=== PATIENT | female | born 1940 | race Caucasian/White ===

== ENCOUNTER 2016-11-19 13:14 | Inpatient (IN) | payer MEDICARE, BC, MEDICAID ==
[~2016-11-19] VITALS: Ht 165.1 cm; Wt 42.0 kg
[2016-11-19 04:45] VITALS: BP 80/45; PULSE 61; RESP 16; TEMP 97.4; O2SAT 94
[~2016-11-19 13:14] MED LIST: ALKATAB PO; ATEN25TA PO; CLOP75TA PO; FLUO20CA4 PO; LYRI150C PO; MONT10TA4 PO; OMEP20TA PO; PANT40TA3 PO; PRAM0.12 PO; PRAV20TA2 PO; TRAM50TA PO; TRAZ100T4 PO
[2016-11-19 13:26] VITALS: BP 163/72; PULSE 76; RESP 20; TEMP 99.3; O2SAT 93
[2016-11-19] MEDS ORDERED: ATEN25TA PO (13:38)
[2016-11-19] MEDS ORDERED: PRAM0.12 PO (13:38)
[2016-11-19] MEDS ORDERED: PROT40TA PO (13:38)
[2016-11-19] MEDS ORDERED: CLOP75TA PO (13:38)
[2016-11-19] MEDS ORDERED: NYST15T TOPICAL (13:38)
[2016-11-19] MEDS ORDERED: LYRI150C PO (13:38)
[2016-11-19] MEDS ORDERED: TRAZ50TA12 PO (13:38)
[2016-11-19] MEDS ORDERED: FLUO20CA12 PO (13:38)
[2016-11-19] MEDS ORDERED: TRAM50TA PO (13:38)
[2016-11-19] MEDS ORDERED: OMEP20TA PO (13:38)
[2016-11-19] MEDS ORDERED: SODI325T PO (13:38)
[2016-11-19] MEDS ORDERED: MONT10TA4 PO (13:38)
[2016-11-19] MEDS ORDERED: PRAV20TA2 PO (13:38)
[2016-11-19] MEDS ORDERED: LEVO25TA4 PO (13:38)
[2016-11-19] MEDS ORDERED: SODIUM CHLORID 0.9% 500 ML INJ 500 ML IV ONE (13:45)
[2016-11-19] MEDS ORDERED: HYDROmorphone HCL PF 1 MG/ML VIAL IV PUSH ONE (13:45)
--- NOTE | 2016-11-19 13:55 | PD ---
HPI Chief Complaint: Pain: Acute or Chronic Time Seen by Provider: 13:30 Travel History International Travel<30 days: No Contact w/Intl Traveler<30days: No Traveled to known affect area: No History of Present Illness HPI Is a 76 year-old woman who presents to the emergency room complaining of back pain. She is a history of back pain in the past. States tramadol and alert, regularly. She states over the past 2-3 days progressively worse. Today she is not able to get out of bed and so her son called the ambulance. 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 States the pain is severe, was unable to sleep last night. Has fallen in the remote past, several weeks to months ago, denies any recent falls or injuries. No other complaints. History Past Medical History Narrative Medical History gastric ulcer and GI bleed Hypertension Osteoarthritis history of CVA PNEUMOCCOCAL Vaccine (Year): 2 Menopausal: Yes Social History Alcohol Use: No Tobacco Use: No Allergies-Medications (Allergen,Severity, Reaction): Coded Allergies: Augmentin (Verified Allergy, Severe, HIVES, 05/23/16) Demerol (Verified Allergy, Severe, shortness of breath, 05/23/16) Gabapentin (Verified Allergy, Severe, NAUSEA, 05/23/16) Methadone (Verified Allergy, Severe, HTN, 05/23/16) Morphine (Verified Allergy, Severe, 05/23/16) shortness of breath Plaquenil (Verified Allergy, Severe, Nausea/Vomiting HEADACHE, 05/23/16) Skelaxin (Verified Allergy, Severe, NAUSEA, 05/23/16) Tetracyclines (Verified Allergy, Severe, NAUSEA, 05/23/16) Tigan (Verified Allergy, Severe, NAUSEA, 05/23/16) Codeine (Verified Adverse Reaction, Severe, NAUSEA, 05/23/16) Reported Meds & Prescriptions Reported Meds & Active Scripts Active Reported Protonix (Pantoprazole Sodium) 40 Mg Tab 40 Mg PO DIRECTED ONLY AFTER OMEPRAZOLE IS GONE Fluoxetine (Fluoxetine HCl) 20 Mg Capsule 20 Mg PO DAILY Nystatin Topical (Nystatin) 100,000 unit/gm Cream 1 Applic TOPICAL TID Atenolol 25 Mg Tab 25 Mg PO DAILY Montelukast (Montelukast Sodium) 10 Mg Tab 10 Mg PO HS Pramipexole (Pramipexole Dihydrochloride) 0.125 Mg Tab 0.125 Mg PO HS Trazodone (Trazodone HCl) 50 Mg Tab 100 Mg PO HS Sodium Bicarbonate 325 Mg Tab Unknown Dose PO DAILY Tramadol (Tramadol HCl) 50 Mg Tab 100 Mg PO BID PRN Pravastatin 20 Mg Tab 20 Mg PO DAILY Clopidogrel (Clopidogrel Bisulfate) 75 Mg Tab 75 Mg PO DAILY Omeprazole 20 Mg Tab 20 Mg PO DAILY Lyrica (Pregabalin) 150 Mg Cap 150 Mg PO BID Levothyroxine (Levothyroxine Sodium) 25 Mcg Tab Unknown Dose PO DAILY 1.5 HOURS AFTER DINNER Review of Systems Except as stated in HPI: all other systems reviewed are Neg Physical Exam Narrative GENERAL: Frail 76 year-old woman, appears uncomfortable but nontoxic. SKIN: Focused skin assessment warm/dry. NECK: Trachea midline. No JVD. CARDIOVASCULAR: Regular rate and rhythm. No murmur appreciated. RESPIRATORY: No accessory muscle use. Clear to auscultation. Breath sounds equal bilaterally. GASTROINTESTINAL: Abdomen soft, non-tender, nondistended. Hepatic and splenic margins not palpable. MUSCULOSKELETAL: No obvious deformities. Some scoliosis in the back. Pain with any range of motion of the back. Tenderness in the very low lumbar spine. NEUROLOGICAL: Awake and alert. No obvious cranial nerve deficits. Motor grossly within normal limits. Normal speech. PSYCHIATRIC: Appropriate mood and affect; insight and judgment normal. Data Data Last Documented VS Vital Signs Date Time Temp Pulse Resp B/P Pulse Ox O2 Delivery O2 Flow Rate FiO2 11/19/16 13:26 99.3 76 20 163/72 93 Orders Complete Blood Count With Diff (11/19/16 13:41) Comprehensive Metabolic Panel (11/19/16 13:41) Spine, Lumbar Comp W/Obliq (11/19/16 ) Urinalysis - C+S If Indicated (11/19/16 13:41) Iv Access Insert/Monitor (11/19/16 13:41) Hydromorphone Pf Inj (Dilaudid Pf Inj) (11/19/16 13:45) Sodium Chlorid 0.9% 500 Ml Inj (Ns 500 M (11/19/16 13:45) Vascular Access Team Consult/P PRN (11/19/16 13:49) Vascular Poc Ultrasound (11/19/16 ) Admit Order (Ed Use Only) (11/19/16 ) Labs Laboratory Tests Test 11/19/16 11/19/16 14:10 14:40 White Blood Count 9.3 TH/MM3 Red Blood Count 3.26 MIL/MM3 Hemoglobin 9.2 GM/DL Hematocrit 27.7 % Mean Corpuscular Volume 84.9 FL Mean Corpuscular Hemoglobin 28.1 PG Mean Corpuscular Hemoglobin 33.1 % Concent Red Cell Distribution Width 16.3 % Platelet Count 222 TH/MM3 Mean Platelet Volume 8.3 FL Neutrophils (%) (Auto) 77.9 % Lymphocytes (%) (Auto) 10.9 % Monocytes (%) (Auto) 10.1 % Eosinophils (%) (Auto) 0.7 % Basophils (%) (Auto) 0.4 % Neutrophils # (Auto) 7.2 TH/MM3 Lymphocytes # (Auto) 1.0 TH/MM3 Monocytes # (Auto) 0.9 TH/MM3 Eosinophils # (Auto) 0.1 TH/MM3 Basophils # (Auto) 0.0 TH/MM3 CBC Comment AUTO DIFF Differential Comment AUTO DIFF CONFIRMED Platelet Estimate NORMAL Platelet Morphology Comment NORMAL Red Cell Morphology Comment NORMAL Sodium Level 137 MEQ/L Potassium Level 5.2 MEQ/L Chloride Level 104 MEQ/L Carbon Dioxide Level 27.7 MEQ/L Anion Gap 5 MEQ/L Blood Urea Nitrogen 37 MG/DL Creatinine 1.49 MG/DL Estimat Glomerular Filtration 34 ML/MIN Rate Random Glucose 94 MG/DL Calcium Level 8.9 MG/DL Total Bilirubin 0.3 MG/DL Aspartate Amino Transf 31 U/L (AST/SGOT) Alanine Aminotransferase 18 U/L (ALT/SGPT) Alkaline Phosphatase 99 U/L Total Protein 7.3 GM/DL Albumin 3.2 GM/DL Urine Color YELLOW Urine Turbidity CLEAR Urine pH 6.5 Urine Specific [place] 1.012 Urine Protein NEG mg/dL Urine Glucose (UA) NEG mg/dL Urine Ketones NEG mg/dL Urine Occult Blood NEG Urine Nitrite NEG Urine Bilirubin NEG Urine Urobilinogen LESS THAN 2.0 MG/DL Urine Leukocyte Esterase NEG Urine RBC LESS THAN 1 /hpf Urine Squamous Epithelial 1 /hpf Cells Microscopic Urinalysis Comment CULT NOT INDICATED MDM Medical Decision Making Medical Screen Exam Complete: Yes Emergency Medical Condition: Yes Interpretation(s) LABS: CBC remarkable for mild anemia. CMP unremarkable, mildly elevated BUN/creatinine. UA unremarkable. X-ray lumbar spine: Under mineral ice bones with marginal scoliosis and postsurgical changes extremity from L1 to S1. Degenerative disc disease L2-L3, L5 through S1. Compression fracture involving T11, T12, and L1 of uncertain chronicity. Differential Diagnosis Acute on chronic low back pain, compression fracture, AAA, UTI, other Narrative Course Medical decision making INITIAL: 76-year-old woman who presents with acute on chronic low back pain, unable to walk due to pain, worse with movement. We'll check x-ray to evaluate for possible compression fracture, labs, reassess. FINAL: 76 year-old woman, lives alone, unable to walk due to back pain, x-ray shows compression fractures although higher in the back than expected given her location of her pain. Likely old. We'll plan on admission for pain control, PT eval, reassess. Diagnosis Primary Impression: Intractable low back pain Additional Impression: Gait instability Lavon Alvarado MD November 19, 2016 13:55
[2016-11-19 14:26] LABS: AUTOMATED NEUTROPHIL # 7.2 TH/MM3 (1.8-7.7); BASOPHIL % 0.4 % (0.0-2.0); EOSINOPHIL # 0.1 TH/MM3 (0-0.4); EOSINOPHIL % 0.7 % (0.0-4.0); HEMATOCRIT 27.7 % (35.0-46.0); LYMPH % 10.9 % (9.0-44.0); MEAN CELL VOLUME 84.9 FL (80.0-100.0); MEAN CORPUSCULAR HEMOGLOBIN 28.1 PG (27.0-34.0); MEAN CORPUSCULAR HGB CONC 33.1 % (32.0-36.0); MONO % 10.1 % (0.0-8.0); NEUT % 77.9 % (16.0-70.0); PLATELET COUNT 222 TH/MM3 (150-450); RED BLOOD COUNT 3.26 MIL/MM3 (4.00-5.30); RED CELL DISTRIBUTION WIDTH 16.3 % (11.6-17.2); WHITE BLOOD COUNT 9.3 TH/MM3 (4.0-11.0)
[2016-11-19 14:27] LABS: HEMO FLAGS AUTO DIFF
[2016-11-19 14:43] LABS: ALKALINE PHOSPHATASE 99 U/L (45-117); TOTAL BILIRUBIN ADULT 0.3 MG/DL (0.2-1.0)
--- NOTE | 2016-11-19 14:49 | RADRPT ---
EXAM DATE/TIME: 11/19/2016 14:19 [facility] COMPARISON: CT ABDOMEN & PELVIS W CONTRAST, October 13, 2015, 16:01. INDICATIONS : Lumbar spine pain. No recent falls or injuries. MEDICAL HISTORY : None. SURGICAL HISTORY : Lumbar spine fusion. ENCOUNTER: Initial ACUITY: 4 - 6 days PAIN SCORE: 8/10 LOCATION: Lumbar spine. FINDINGS: 5 views of the lumbar spine demonstrate 5 [id number] lumbar vertebral bodies with marked leftwar d convex curvature. There are bilateral posterior pedicular screws extending from L1-S1. Stabilizatio n hardware is present. There are no features to indicate hardware failure or loosening. There is decr eased vertebral body height at T11, T12, and L1. Bones are undermineralized. There may be some degree of osseous fusion between L3 and L4. There is decreased disc height at all lumbar levels. Hypertroph ic bone around the posterior elements is likely related to prior bone graft. There also has been prio r laminectomy. Pelvic bones demonstrate no acute finding. There is moderate atherosclerotic disease of the aorta. CONCLUSION: 1. Undermineralized bones with marked levoscoliosis and postsurgical changes extending from L1-S1, as above. 2. There is degenerative disc disease at L2-L3 through L5-S1. 3. Compression fractures involving T11, T12, and L1 of uncertain chronicity. Jason Hernandez MD on November 19, 2016 at 14:45 Board Certified Radiologist. This report was verified electronically.
[2016-11-19 14:50] LABS: ALT (GPT) 18 U/L (10-53); ANION GAP 5 MEQ/L (5-15); AST (GOT) 31 U/L (15-37); BICARBONATE 27.7 MEQ/L (21.0-32.0); BLOOD UREA NITROGEN 37 MG/DL (7-18); CHLORIDE 104 MEQ/L (98-107); GLOMERULAR FILTRATION RATE 34 ML/MIN (>89); SODIUM (NA) 137 MEQ/L (136-145)
[2016-11-19 14:51] LABS: POTASSIUM 5.2 MEQ/L (3.5-5.1)
[2016-11-19 14:53] LABS: BLOOD, URINE NEG (NEG); GLUCOSE,URINE NEG (NEG); KETONE, URINE NEG (NEG); NITRITE,URINE NEG (NEG); PH, URINE 6.5 (5.0-8.5); SQUAMOUS EPITHELIAL CELL URINE 1 /hpf (0-5); URINE COLOR YELLOW (YELLW/STRAW)
[2016-11-19 15:00] LABS: COMMENT (UR) CULT NOT INDICATED; CULTURE IF INDICATED CULT NOT INDICATED
[2016-11-19 15:02] LABS: PLATELET ESTIMATE SMEAR NORMAL (NORMAL); PLATELET MORPHOLOGY NORMAL (NORMAL)
[2016-11-19 15:03] LABS: SCAN/DIFF AUTO DIFF CONFIRMED
[2016-11-19] MEDS ORDERED: MAGNESIUM HYDROXIDE SUSP 30 ML CUP PO PRN (15:45)
[2016-11-19] MEDS ORDERED: SENNOSIDES 8.6 MG TAB PO PRN (15:45)
[2016-11-19] MEDS ORDERED: LACTULOSE SYRUP 20 GM/30 ML CUP PO PRN (15:45)
[2016-11-19] MEDS ORDERED: SODIUM CHLORIDE 0.9% FLUSH 10 ML FLUSH IV FLUSH PRN (15:45)
[2016-11-19] MEDS ORDERED: NALOXONE HCL 0.4 MG/ML AMP IV PRN (15:45)
[2016-11-19] MEDS ORDERED: ACETAMINOPHEN 325 MG TAB PO PRN (15:45)
[2016-11-19] MEDS ORDERED: HYDROmorphone HCL PF 1 MG/ML VIAL IV PUSH PRN (15:45)
[2016-11-19] MEDS ORDERED: BISACODYL 10 MG SUPP RECTAL PRN (15:45)
[2016-11-19] MEDS ORDERED: ONDANSETRON HCL 4 MG/2 ML VIAL IVP PRN (15:45)
[2016-11-19] MEDS ORDERED: PILL SPLITTER OTHER PRN (16:15)
--- NOTE | 2016-11-19 16:29 | HHI.HP ---
HPI Service [facility]ician Billie Sierra MD Admission Diagnosis intractable back pain, compression fractures Diagnoses: Chief Complaint: Back pain Travel History International Travel<30 Days: No Contact w/Intl Traveler <30 Da: No Traveled to Known Affected Are: No History of Present Illness Written by Hong Gardner, acting as scribe for Dr. Ceballos on 11/19/16 at 16:10. 76-year-old female with a past medical history of PUD, HTN, CVA, HLD, depression , Parkinson's, hypothyroidism, lupus, CKD, and chronic back pain who presents with acute worsening of her back pain. The patient is seen with family at bedside who reports that she does have dementia and short-term memory problems. Therefore, history is obtained from the patient, family at bedside, and the medical record. The patient states that she always has pain in her back. However for the past day the pain has become severe. The patient is unable to walk or really move her back secondary to the pain. States that this is the "worst ever" the pain has ever been. She locates the pain in her lower back. She denies any recent falls or injuries. She denies any weakness or numbness. The patient's family states that she was able to walk whenever they saw her one week ago. The patient does reside at home with a caregiver. The patient has an extensive history of back pain and has followed with pain management and has had neurostimulator placed and removed, and has had cervical spine surgery with Dr. Bennett in the past. Review of Systems Except as stated in HPI: all other systems reviewed are Neg Past Family Social History Past Medical History PUD/history of GI bleed Hypertension History of CVA Hyperlipidemia Chronic kidney disease stage III Depression Parkinson's Hypothyroidism Lupus Dementia Past Surgical History Bilateral shoulder replacement Back and neck surgery Nerve stimulator placement and removal Reported Medications Protonix (Pantoprazole Sodium) 40 Mg Tab 40 Mg PO DIRECTED ONLY AFTER OMEPRAZOLE IS GONE Fluoxetine (Fluoxetine HCl) 20 Mg Capsule 20 Mg PO DAILY Nystatin Topical (Nystatin) 100,000 unit/gm Cream 1 Applic TOPICAL TID Atenolol 25 Mg Tab 25 Mg PO DAILY Montelukast (Montelukast Sodium) 10 Mg Tab 10 Mg PO HS Pramipexole (Pramipexole Dihydrochloride) 0.125 Mg Tab 0.125 Mg PO HS Trazodone (Trazodone HCl) 50 Mg Tab 100 Mg PO HS Sodium Bicarbonate 325 Mg Tab Unknown Dose PO DAILY Tramadol (Tramadol HCl) 50 Mg Tab 100 Mg PO BID PRN Pravastatin 20 Mg Tab 20 Mg PO DAILY Clopidogrel (Clopidogrel Bisulfate) 75 Mg Tab 75 Mg PO DAILY Omeprazole 20 Mg Tab 20 Mg PO DAILY Lyrica (Pregabalin) 150 Mg Cap 150 Mg PO BID Levothyroxine (Levothyroxine Sodium) 25 Mcg Tab Unknown Dose PO DAILY 1.5 HOURS AFTER DINNER Allergies: Coded Allergies: Augmentin (Verified Allergy, Severe, HIVES, 05/23/16) Demerol (Verified Allergy, Severe, shortness of breath, 05/23/16) Gabapentin (Verified Allergy, Severe, NAUSEA, 05/23/16) Methadone (Verified Allergy, Severe, HTN, 05/23/16) Morphine (Verified Allergy, Severe, 05/23/16) shortness of breath Plaquenil (Verified Allergy, Severe, Nausea/Vomiting HEADACHE, 05/23/16) Skelaxin (Verified Allergy, Severe, NAUSEA, 05/23/16) Tetracyclines (Verified Allergy, Severe, NAUSEA, 05/23/16) Tigan (Verified Allergy, Severe, NAUSEA, 05/23/16) Codeine (Verified Adverse Reaction, Severe, NAUSEA, 05/23/16) Active Ordered Medications Current Medications Medications (Trade) Dose Ordered Sig/Ngoc Route Start Time Stop Time Status Last Admin (Tenormin) 25 mg DAILY PO 11/20/16 09:00 (PROzac) 20 mg DAILY PO 11/20/16 09:00 (Singulair) 10 mg HS PO 11/19/16 21:00 (Protonix) 40 mg DAILY PO 11/20/16 09:00 (Pravachol) 20 mg DAILY PO 11/20/16 09:00 (Lyrica) 150 mg BID PO 11/19/16 21:00 (Mirapex) 0.125 mg HS PO 11/19/16 21:00 (NS Flush) 2 ml UNSCH PRN IV FLUSH 5/29/17 15:45 (NS Flush) 2 ml BID IV FLUSH 11/19/16 21:00 (Tylenol) 650 mg Q4H PRN PO 11/19/16 15:45 (Zofran Inj) 4 mg Q6H PRN IVP 11/19/16 15:45 (Heparin Inj) 5,000 units Q12H SQ 11/19/16 17:00 (Narcan Inj) 0.4 mg UNSCH PRN IV 11/19/16 15:45 (Susana-Colace) 1 tab BID PO 11/19/16 21:00 (Milk Of Magnesia Liq) 30 ml Q12H PRN PO 11/19/16 15:45 (Senokot) 17.2 mg Q12H PRN PO 11/19/16 15:45 (Dulcolax Supp) 10 mg DAILY PRN RECTAL 11/19/16 15:45 (Lactulose Liq) 30 ml DAILY PRN PO 11/19/16 15:45 (Percocet 5-325 Mg) 1 tab Q4H PRN PO 11/19/16 15:45 (Dilaudid Pf Inj) 0.5 mg Q4H PRN IV PUSH 11/19/16 15:45 (Pill Splitter) 1 ea UNSCH PRN OTHER 11/19/16 16:15 Family History Family history of arthritis and osteoporosis Social History Former tobacco use, the patient reports a [id number] smoking history Denies any alcohol use Lives at home with a caregiver Physical Exam Vital Signs Vital Signs Date Time Temp Pulse Resp B/P Pulse Ox O2 Delivery O2 Flow Rate FiO2 11/19/16 13:26 99.3 76 20 163/72 93 Physical Exam GENERAL: Well-developed fair-nourished. Frail-appearing elderly female. In no acute distress. SKIN: Warm and dry. No lesions noted. HEENT: Normocephalic. Pupils equal and round. Mucous membranes pink and moist. CARDIOVASCULAR: Regular rate and rhythm. No murmur appreciated. RESPIRATORY: No accessory muscle use. Clear to auscultation. Breath sounds equal bilaterally. GASTROINTESTINAL: Abdomen soft, non-tender, nondistended. Bowel sounds x4. MUSCULOSKELETAL: No obvious deformities. No clubbing or cyanosis. No edema. Unable to roll over or move the spine secondary to pain. NEUROLOGICAL: Awake and alert. Moves upper and lower extremities spontaneously. Normal speech. Strength 5/5 in the lower extremities. PSYCHIATRIC: Appropriate mood and affect; insight and judgment fair. Laboratory Laboratory Tests Test 11/19/16 11/19/16 14:10 14:40 White Blood Count 9.3 Red Blood Count 3.26 Hemoglobin 9.2 Hematocrit 27.7 Mean Corpuscular Volume 84.9 Mean Corpuscular Hemoglobin 28.1 Mean Corpuscular Hemoglobin 33.1 Concent Red Cell Distribution Width 16.3 Platelet Count 222 Mean Platelet Volume 8.3 Neutrophils (%) (Auto) 77.9 Lymphocytes (%) (Auto) 10.9 Monocytes (%) (Auto) 10.1 Eosinophils (%) (Auto) 0.7 Basophils (%) (Auto) 0.4 Neutrophils # (Auto) 7.2 Lymphocytes # (Auto) 1.0 Monocytes # (Auto) 0.9 Eosinophils # (Auto) 0.1 Basophils # (Auto) 0.0 CBC Comment AUTO DIFF Differential Comment AUTO DIFF CONFIRMED Platelet Estimate NORMAL Platelet Morphology Comment NORMAL Red Cell Morphology Comment NORMAL Sodium Level 137 Potassium Level 5.2 Chloride Level 104 Carbon Dioxide Level 27.7 Anion Gap 5 Blood Urea Nitrogen 37 Creatinine 1.49 Estimat Glomerular Filtration 34 Rate Random Glucose 94 Calcium Level 8.9 Total Bilirubin 0.3 Aspartate Amino Transf 31 (AST/SGOT) Alanine Aminotransferase 18 (ALT/SGPT) Alkaline Phosphatase 99 Total Protein 7.3 Albumin 3.2 Urine Color YELLOW Urine Turbidity CLEAR Urine pH 6.5 Urine Specific [place] 1.012 Urine Protein NEG Urine Glucose (UA) NEG Urine Ketones NEG Urine Occult Blood NEG Urine Nitrite NEG Urine Bilirubin NEG Urine Urobilinogen LESS THAN 2.0 Urine Leukocyte Esterase NEG Urine RBC LESS THAN 1 Urine Squamous Epithelial 1 Cells Microscopic Urinalysis Comment CULT NOT INDICATED Result Diagram: 11/19/16 1410 11/19/16 1410 Imaging Last Impressions Lumbar Spine X-Ray 11/19/16 0000 Signed Impressions: Service Date/Time: Saturday, November 19, 2016 14:19 - CONCLUSION: 1. Undermineralized bones with marked levoscoliosis and postsurgical changes extending from L1-S1, as above. 2. There is degenerative disc disease at L2-L3 through L5-S1. 3. Compression fractures involving T11, T12, and L1 of uncertain chronicity. Jason Hernandez MD Assessment and Plan Assessment and Plan 76-year-old female with a past medical history of PUD, HTN, CVA, HLD, depression , Parkinson's, hypothyroidism, lupus, CKD, and chronic back pain who presents with acute worsening of her back pain Acute on chronic back pain: Reviewed: Lumbar x-ray with under mineralized bones with marked levoscoliosis and postsurgical changes from L1-S1; compression fractures involving T11 through L1 of uncertain chronicity; DDD L2-S1. -Pain control with oral and intravenous narcotics -Consult neurosurgery -PT eval -Continue home Lyrica History of CVA: Hold Plavix for now pending neurosurgery evaluation, and will plan to resume if no intervention planned. Normocytic anemia: Chronic, stable. Hemoglobin 9.2, previously 8.4 on 10/15/15. Monitor CBC. CKD stage III: Chronic, stable. Creatinine 1.49, previously 1.51 on 10/14/15. Follow-up BMP. Other chronic medical conditions include GERD, HLD, Parkinson's disease, HTN, anxiety/depression: Stable at this time and will continue home medications as indicated. DVT prophylaxis: Heparin This note was transcribed by scribbryant [Jj Pitts]. I, Dr. Norberto Ceballos personally performed the history, physical exam, and medical decision making; and confirmed the accuracy of the information in the transcribed note. Authenticated by Dr. Norberto Ceballos on 11/19/16 at 16:15. Discussed Condition With Patient with family at bedside, ED staff Hong Gardner November 19, 2016 16:29 Norberto Ceballos MD November 19, 2016 16:43
[2016-11-19 16:45] VITALS: BP 159/80; PULSE 75; RESP 18; TEMP 98.5; O2SAT 94
[2016-11-19] MEDS: HEPARIN SODIUM - SQ 10,000 UNITS/ML VIAL SQ SCH (18:28)
[2016-11-19 20:00] VITALS: BP 133/50; PULSE 83; RESP 16; TEMP 98; O2SAT 95
[2016-11-19] MEDS: oxyCODONE/ACETAMINOPHEN 5 MG/325 MG TAB PO PRN (21:00)
[2016-11-19] MEDS: DOCUSATE SODIUM 50 MG/SENNA 8.6 MG TAB PO SCH (21:08)
[2016-11-19] MEDS: MONTELUKAST SODIUM 10 MG TAB PO SCH (21:08)
[2016-11-19] MEDS: PRAMIPEXOLE DIHYDROCHLORIDE 0.25 MG TAB PO SCH (21:08)
[2016-11-19] MEDS: PREGABALIN 75 MG CAP PO SCH (21:08)
[2016-11-19] MEDS: SODIUM CHLORIDE 0.9% FLUSH 10 ML FLUSH IV FLUSH SCH (21:14)
[2016-11-20] VITALS: BP 90/54; PULSE 65; RESP 16; TEMP 98.2; O2SAT 94
[2016-11-20] MEDS: oxyCODONE/ACETAMINOPHEN 5 MG/325 MG TAB PO PRN ×3 (02:21→18:37)
[2016-11-20] MEDS ORDERED: DEXT 5%-NACL 0.45% 500 ML INJ 500 ML IV ONE (04:45)
[2016-11-20] MEDS: HEPARIN SODIUM - SQ 10,000 UNITS/ML VIAL SQ SCH (05:01)
[2016-11-20 06:14] VITALS: BP 90/46; PULSE 64; RESP 16; O2SAT 95
[2016-11-20 06:16] LABS: AUTOMATED NEUTROPHIL # 2.5 TH/MM3 (1.8-7.7); BASOPHIL % 0.4 % (0.0-2.0); EOSINOPHIL # 0.1 TH/MM3 (0-0.4); EOSINOPHIL % 3.6 % (0.0-4.0); HEMATOCRIT 24.5 % (35.0-46.0); HEMO FLAGS DIFF FINAL; LYMPH % 22.3 % (9.0-44.0); LYMPHOCYTE # 0.9 TH/MM3 (1.0-4.8); MEAN CELL VOLUME 87.2 FL (80.0-100.0); MEAN CORPUSCULAR HEMOGLOBIN 27.7 PG (27.0-34.0); MEAN CORPUSCULAR HGB CONC 31.7 % (32.0-36.0); MONO % 11.6 % (0.0-8.0); NEUT % 62.1 % (16.0-70.0); PLATELET COUNT 157 TH/MM3 (150-450); RED BLOOD COUNT 2.81 MIL/MM3 (4.00-5.30); RED CELL DISTRIBUTION WIDTH 15.9 % (11.6-17.2); WHITE BLOOD COUNT 4.1 TH/MM3 (4.0-11.0)
[2016-11-20 07:29] VITALS: BP 113/47; PULSE 63; RESP 16; TEMP 97.4; O2SAT 94
[2016-11-20] MEDS ORDERED: ATENOLOL 25 MG TAB PO SCH (09:00)
[2016-11-20] MEDS ORDERED: NON-FORMULARY DRUG (Omeprazole 20 MG) PO SCH (09:00)
[2016-11-20] MEDS: DOCUSATE SODIUM 50 MG/SENNA 8.6 MG TAB PO SCH ×2 (10:05→20:46)
[2016-11-20] MEDS: SODIUM CHLORIDE 0.9% FLUSH 10 ML FLUSH IV FLUSH SCH ×2 (10:05→20:47)
[2016-11-20] MEDS: PREGABALIN 75 MG CAP PO SCH ×2 (10:06→20:47)
[2016-11-20] MEDS: PRAVASTATIN SOD 20 MG TAB PO SCH (10:06)
[2016-11-20] MEDS: PANTOPRAZOLE SOD 40 MG DELAYED RELEASE TAB PO SCH (10:07)
[2016-11-20] MEDS: FLUoxetine HCL 20 MG CAP PO SCH (10:07)
--- NOTE | 2016-11-20 10:07 | HHI.PR ---
Subjective Remarks Patient reports she is feeling better today. Her back pain is better controlled at rest. She has not been out of bed yet. She denies shortness of breath or chest pain. Objective Vitals Vital Signs Date Time Temp Pulse Resp B/P Pulse Ox O2 Delivery O2 Flow Rate FiO2 11/20/16 07:29 97.4 63 16 113/47 94 11/20/16 06:14 64 16 90/46 95 11/20/16 00:00 98.2 65 16 90/54 94 11/19/16 20:00 98.0 83 16 133/50 95 11/19/16 16:45 98.5 75 18 159/80 94 11/19/16 13:26 99.3 76 20 163/72 93 I/O 11/19/16 11/19/16 11/19/16 11/20/16 11/20/16 11/20/16 07:00 15:00 23:00 07:00 15:00 23:00 Intake Total 240 ml 120 ml Balance 240 ml 120 ml Intake Oral 240 ml 120 ml # Voids 1 2 # Bowel Movements 0 0 Result Diagram: 11/20/16 0606 11/20/16 0606 Imaging Last Impressions Lumbar Spine X-Ray 11/19/16 0000 Signed Impressions: Service Date/Time: Saturday, November 19, 2016 14:19 - CONCLUSION: 1. Undermineralized bones with marked levoscoliosis and postsurgical changes extending from L1-S1, as above. 2. There is degenerative disc disease at L2-L3 through L5-S1. 3. Compression fractures involving T11, T12, and L1 of uncertain chronicity. Jason Hernandez MD Objective Remarks GENERAL: Frail and elderly female in no apparent distress. CARDIOVASCULAR: Normal rate and regular rhythm without murmurs, gallops, or rubs. RESPIRATORY: Good respiratory efforts. Breath sounds equal and clear to auscultation bilaterally. GASTROINTESTINAL: Abdomen soft, non-tender, non-distended. Normal active bowel sounds MUSCULOSKELETAL: Patient complains of tenderness to palpation over the lower back. NEURO: Alert & Oriented to self and place. Pleasantly demented. PSYCH: Appropriate mood and affect. A/P Assessment and Plan 76-year-old female with a past medical history of PUD, HTN, CVA, HLD, depression , Parkinson's, hypothyroidism, lupus, CKD, and chronic back pain who presents with acute worsening of her back pain Acute on chronic back pain: Reviewed: Lumbar x-ray with under mineralized bones with marked levoscoliosis and postsurgical changes from L1-S1; compression fractures involving T11 through L1 of uncertain chronicity; DDD L2-S1. - Patient seen by neurosurgery who advised pain control. No neurosurgical interventions indicated at this point. -PT eval. Continue Percocet and Lyrica History of CVA: Resume Plavix. Normocytic anemia: Chronic, hemoglobin trended down today to 7.8. No signs of active bleeding. Monitor CBC. CKD stage III: Chronic, stable. Creatinine 1.49, previously 1.51 on 10/14/15. Follow-up BMP. Other chronic medical conditions include GERD, HLD, Parkinson's disease, HTN, anxiety/depression: Stable at this time and will continue home medications as indicated. DVT prophylaxis: Heparin Discharge Planning I'm not sure the patient will be able to return home. She will probably need [facility] facility placement. Norberto Ceballos MD November 20, 2016 10:07
[2016-11-20 11:35] VITALS: BP 117/55; PULSE 66; RESP 16; TEMP 98.7; O2SAT 94
--- NOTE | 2016-11-20 13:56 | MB ---
cc: ANAHY FRANK M.D., ROHIT K. M.D. DATE OF CONSULTATION: 11/20/2016 REASON FOR CONSULTATION: Low back pain. HISTORY OF PRESENT ILLNESS The patient is a 76-year-old female who resides at home with a ceramic coater and gets around using a walker. Has chronic history of low back pain although states it has gotten worse over the last several weeks, in particularly the last few days she has had difficulty walking because of the pain. Denies any numbness or paresthesias in the upper or lower extremities or any incontinence. She had a history of anterior cervical fusion by Dr. Bennett several years ago, as well as prior to that history of the L1-S1 fusion with pedicle screw fixation. 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 Lumbar spine x-rays also reveal T11-T12 and L1 with compression fractures which appear to be chronic. Her complaint is mostly in the lower lumbar aspect rather then the thoracic spine. She does not remember significant portion of her medical history, within her surgeries in particular, although also had one point had a spinal stimulator in place which was removed. She does suffer from dementia. PAST MEDICAL HISTORY Dementia Parkinson's disease Chronic low back pain Chronic kidney disease History of stroke. Hypertension. Gastrointestinal bleed. Peptic ulcer disease. Depression Hypothyroidism Lupus. PAST SURGICAL HISTORY: 1. Past surgical history also includes bilateral shoulder replacement with limited to the proximal shoulder movement. 2. Cervical spine surgery. 3. Multilevel lumbar fusion from L1-S1. 4. A spinal stimulator placement and subsequent removal. MEDICATIONS PRIOR TO ADMISSION 1. Atenolol. 2. Plavix. 3. Fluoxetine. 4. Synthroid, 5. Montelukast 6. Nystatin. 7. Omeprazole. 8. Protonix. 9. Thiamine. 10. Taxol. 11. Pravastatin. 12. Lyrica. 13. Sodium bicarbonate. 14. Tramadol. 15. Trazodone. ALLERGIES 1. CODEINE 2. DEMEROL 3. GABAPENTIN 4. METHADONE 5. MORPHINE 6. PLAQUENIL 7. SKELAXIN 8. TETRACYCLINE 9. TIGAN 10. AUGMENTIN SOCIAL HISTORY She is a . She resides at home with a ceramic coater although has limited her activities a walker. Denies alcohol or tobacco use. LABORATORY FINDINGS White blood cell count 4.1, hemoglobin 7.8, platelet count of 157, sodium 136, potassium 4.0, BUN 34, creatinine 1.36, glucose 208. Urinalysis is negative. PHYSICAL EXAMINATION VITAL SIGNS: Temperature 97.4, pulse is 63, respiratory rate 16, blood pressure 113/47, oxygen saturation 94% room air. HEAD, EYES, EARS, NOSE, AND THROAT: Normocephalic, atraumatic. NECK: Neck is supple. CHEST: Clear bilaterally HEART: Regular rate rhythm with normal S1, S2. ABDOMEN: The abdomen is soft, nontender. Positive bowel sounds. EXTREMITIES: No cyanosis or edema. NEUROLOGIC: She is awake, alert. Cranial nerves II through XII grossly intact. Motor strength very limited proximally upper extremity shoulder movement because of her previous surgeries and further shoulders, initially she has good strength in the upper and lower extremities. Negative Babinski. Appreciate light touch sensation. Speech is fluent. She has some tenderness in the back with the lower lumbosacral aspect but not in the thoracic or upper lumbar spine. IMPRESSION 1. Chronic low back pain with a history of extensive multilevel fusion extending from L1-S1. She also has some tract T11-T12 and L1 mild to moderate compression fractures which appear to be chronic although her pain is not localized at these levels. 2. Extensive medical comorbidities as listed above. PLAN The patient does not require any neurosurgical intervention nor a she interested any further back surgery. I recommend pain control along with the physical therapy and rehabilitation. If her pain is not adequately controlled with medications and can had can have the special procedures or interventional pain specialist performed by lumbar epidural steroid injections. MD HERI East/kevin /11:22 AM /1:42 PM [facility]
[2016-11-20 15:13] VITALS: BP 115/57; PULSE 63; RESP 16; TEMP 96.3; O2SAT 96
[2016-11-20 20:40] VITALS: BP 101/58; PULSE 72; RESP 17; TEMP 99; O2SAT 93
[2016-11-20] MEDS: PRAMIPEXOLE DIHYDROCHLORIDE 0.25 MG TAB PO SCH (20:46)
[2016-11-20] MEDS: MONTELUKAST SODIUM 10 MG TAB PO SCH (20:46)
[2016-11-21 00:45] VITALS: BP 103/66; PULSE 80; RESP 18; TEMP 99; O2SAT 92
[2016-11-21 04:35] VITALS: BP 119/63; PULSE 70; RESP 17; TEMP 98.4; O2SAT 92
[2016-11-21] MEDS: oxyCODONE/ACETAMINOPHEN 5 MG/325 MG TAB PO PRN ×4 (05:54→23:56)
[2016-11-21 07:11] LABS: HEMATOCRIT 27.7 % (35.0-46.0); MEAN CELL VOLUME 86.6 FL (80.0-100.0); MEAN CORPUSCULAR HEMOGLOBIN 27.4 PG (27.0-34.0); MEAN CORPUSCULAR HGB CONC 31.6 % (32.0-36.0); PLATELET COUNT 196 TH/MM3 (150-450); RED CELL DISTRIBUTION WIDTH 15.8 % (11.6-17.2); REVIEW FLAG FINAL; WHITE BLOOD COUNT 4.6 TH/MM3 (4.0-11.0)
[2016-11-21 07:28] LABS: BICARBONATE 24.3 MEQ/L (21.0-32.0); POTASSIUM 4.2 MEQ/L (3.5-5.1)
[2016-11-21 07:49] VITALS: BP 106/57; PULSE 73; RESP 16; TEMP 95.9; O2SAT 92
[2016-11-21] MEDS: DOCUSATE SODIUM 50 MG/SENNA 8.6 MG TAB PO SCH ×2 (08:46→22:25)
[2016-11-21] MEDS: PRAVASTATIN SOD 20 MG TAB PO SCH (08:46)
[2016-11-21] MEDS: FLUoxetine HCL 20 MG CAP PO SCH (08:46)
[2016-11-21] MEDS: SODIUM CHLORIDE 0.9% FLUSH 10 ML FLUSH IV FLUSH SCH ×2 (08:47→21:00)
[2016-11-21] MEDS: PANTOPRAZOLE SOD 40 MG DELAYED RELEASE TAB PO SCH (08:47)
[2016-11-21] MEDS: PREGABALIN 75 MG CAP PO SCH ×2 (08:47→22:26)
[2016-11-21] MEDS ORDERED: SENN1TAB PO (10:19)
[2016-11-21] MEDS ORDERED: OXYC1TAB63 PO (10:19)
--- NOTE | 2016-11-21 10:23 | HHI.PR ---
Subjective Remarks Patient reports she is feeling better. Her pain is much better controlled. She is able to move better in the bed. Eating well. She is agreeable to go to a care home facility for rehabilitation. Reports that it helped her a lot the last time. Objective Vitals Vital Signs Date Time Temp Pulse Resp B/P Pulse Ox O2 Delivery O2 Flow Rate FiO2 11/21/16 07:49 95.9 73 16 106/57 92 11/21/16 04:35 98.4 70 17 119/63 92 11/21/16 00:45 99.0 80 18 103/66 92 11/20/16 20:40 99.0 72 17 101/58 93 11/20/16 19:35 16 11/20/16 15:13 96.3 63 16 115/57 96 11/20/16 11:35 98.7 66 16 117/55 94 I/O 11/20/16 11/20/16 11/20/16 11/21/16 11/21/16 11/21/16 07:00 15:00 23:00 07:00 15:00 23:00 Intake Total 120 ml 780 ml 240 ml 120 ml Balance 120 ml 780 ml 240 ml 120 ml Intake Oral 120 ml 780 ml 240 ml 120 ml # Voids 2 3 1 2 # Bowel Movements 0 2 1 2 Result Diagram: 11/21/16 0621 11/21/16 0621 Imaging Last Impressions Lumbar Spine X-Ray 11/19/16 0000 Signed Impressions: Service Date/Time: Saturday, November 19, 2016 14:19 - CONCLUSION: 1. Undermineralized bones with marked levoscoliosis and postsurgical changes extending from L1-S1, as above. 2. There is degenerative disc disease at L2-L3 through L5-S1. 3. Compression fractures involving T11, T12, and L1 of uncertain chronicity. Jason Hernandez MD Objective Remarks GENERAL: Frail and elderly female in no apparent distress. CARDIOVASCULAR: Normal rate and regular rhythm without murmurs, gallops, or rubs. RESPIRATORY: Good respiratory efforts. Breath sounds equal and clear to auscultation bilaterally. GASTROINTESTINAL: Abdomen soft, non-tender, non-distended. Normal active bowel sounds MUSCULOSKELETAL: Patient complains of tenderness to palpation over the lower back. NEURO: Alert & Oriented to self and place. Pleasantly demented. PSYCH: Appropriate mood and affect. A/P Assessment and Plan 76-year-old female with a past medical history of PUD, HTN, CVA, HLD, depression , Parkinson's, hypothyroidism, lupus, CKD, and chronic back pain who presents with acute worsening of her back pain Acute on chronic back pain: Reviewed: Lumbar x-ray with under mineralized bones with marked levoscoliosis and postsurgical changes from L1-S1; compression fractures involving T11 through L1 of uncertain chronicity; DDD L2-S1. - Patient seen by neurosurgery who advised pain control. No neurosurgical interventions indicated at this point. Patient cleared for discharge. -PT eval. Continue Percocet and Lyrica - Can discharge to care home facility for continued rehabilitation after 3 midnight stay per Medicare rules. History of CVA: Resume Plavix. Normocytic anemia: Chronic, hemoglobin stabilized. No signs of active bleeding. CKD stage III: Chronic, stable. Other chronic medical conditions include GERD, HLD, Parkinson's disease, HTN, anxiety/depression: Stable at this time and will continue home medications as indicated. DVT prophylaxis: Heparin Discharge Planning DC to care home facility tomorrow once 3 midnight stay requirement is fulfilled. Discussed with case management. [id number] in chart Norberto Ceballos MD November 21, 2016 10:23
[2016-11-21 16:00] VITALS: BP 142/65; PULSE 61; RESP 16; TEMP 97; O2SAT 92
[2016-11-21 20:50] VITALS: BP 130/73; PULSE 62; RESP 18; TEMP 97.6; O2SAT 96
[2016-11-21] MEDS: PRAMIPEXOLE DIHYDROCHLORIDE 0.25 MG TAB PO SCH (22:25)
[2016-11-21] MEDS: MONTELUKAST SODIUM 10 MG TAB PO SCH (22:25)
[2016-11-22 00:20] VITALS: BP 182/84; PULSE 66; RESP 19; TEMP 98.4; O2SAT 95
[2016-11-22] MEDS: oxyCODONE/ACETAMINOPHEN 5 MG/325 MG TAB PO PRN ×3 (04:24→12:48)
[2016-11-22 04:55] VITALS: BP 136/66; PULSE 70
[2016-11-22 07:14] VITALS: BP 122/66; PULSE 69; RESP 19; TEMP 96.5; O2SAT 93
[2016-11-22] MEDS: PANTOPRAZOLE SOD 40 MG DELAYED RELEASE TAB PO SCH (08:40)
[2016-11-22] MEDS: PREGABALIN 75 MG CAP PO SCH (08:40)
[2016-11-22] MEDS: PRAVASTATIN SOD 20 MG TAB PO SCH (08:40)
[2016-11-22] MEDS: FLUoxetine HCL 20 MG CAP PO SCH (08:40)
[2016-11-22] MEDS: SODIUM CHLORIDE 0.9% FLUSH 10 ML FLUSH IV FLUSH SCH (08:41)
[2016-11-22] MEDS: DOCUSATE SODIUM 50 MG/SENNA 8.6 MG TAB PO SCH (08:42)
--- NOTE | 2016-11-22 10:02 | HHI.DS ---
Discharge Summary Admission Date November 19, 2016 at 15:30 Discharge Date: Nov 22, 2016 Admitting Diagnosis intractable back pain, compression fractures (1) Intractable low back pain ICD Code: M54.5 Diagnosis: Principal (2) Hallux abductovalgus with bunions ICD Code: M20.10 Diagnosis: Secondary (3) Compression fracture of body of thoracic vertebra ICD Code: M48.54XA Diagnosis: Principal Procedures none Brief History - From Admission Written by Hong Garnder, acting as scribe for Dr. Ceballos on 11/19/16 at 16:10. 76-year-old female with a past medical history of PUD, HTN, CVA, HLD, depression , Parkinson's, hypothyroidism, lupus, CKD, and chronic back pain who presents with acute worsening of her back pain. The patient is seen with family at bedside who reports that she does have dementia and short-term memory problems. Therefore, history is obtained from the patient, family at bedside, and the medical record. The patient states that she always has pain in her back. However for the past day the pain has become severe. The patient is unable to walk or really move her back secondary to the pain. States that this is the "worst ever" the pain has ever been. She locates the pain in her lower back. She denies any recent falls or injuries. She denies any weakness or numbness. The patient's family states that she was able to walk whenever they saw her one week ago. The patient does reside at home with a caregiver. The patient has an extensive history of back pain and has followed with pain management and has had neurostimulator placed and removed, and has had cervical spine surgery with Dr. Bennett in the past. CBC/BMP: 11/21/16 0621 11/21/16 0621 Significant Findings Laboratory Tests Test 11/19/16 11/20/16 11/21/16 14:10 06:06 06:21 Red Blood Count 3.26 MIL/MM3 2.81 MIL/MM3 3.20 MIL/MM3 (4.00-5.30) (4.00-5.30) (4.00-5.30) Hemoglobin 9.2 GM/DL 7.8 GM/DL 8.8 GM/DL (11.6-15.3) (11.6-15.3) (11.6-15.3) Hematocrit 27.7 % 24.5 % 27.7 % (35.0-46.0) (35.0-46.0) (35.0-46.0) Neutrophils (%) (Auto) 77.9 % (16.0-70.0) Monocytes (%) (Auto) 10.1 % 11.6 % (0.0-8.0) (0.0-8.0) Potassium Level 5.2 MEQ/L (3.5-5.1) Blood Urea Nitrogen 37 MG/DL (7-18) 34 MG/DL (7-18) 28 MG/DL (7-18) Creatinine 1.49 MG/DL 1.36 MG/DL 1.33 MG/DL (0.50-1.00) (0.50-1.00) (0.50-1.00) Estimat Glomerular Filtration 34 ML/MIN (>89) 38 ML/MIN (>89) 39 ML/MIN (>89) Rate Albumin 3.2 GM/DL (3.4-5.0) Mean Corpuscular Hemoglobin 31.7 % 31.6 % Concent (32.0-36.0) (32.0-36.0) Lymphocytes # (Auto) 0.9 TH/MM3 (1.0-4.8) Random Glucose 208 MG/DL 60 MG/DL (74-106) (74-106) Calcium Level 7.8 MG/DL (8.5-10.1) PE at Discharge GENERAL: NAD, A&Ox3, frail/ederly SKIN: Warm and dry. HEAD: Normocephalic. EYES: No scleral icterus. No injection or drainage. NECK: Supple, trachea midline. No JVD or lymphadenopathy. CARDIOVASCULAR: Regular rate and rhythm without murmurs, gallops, or rubs. RESPIRATORY: Breath sounds equal bilaterally. No accessory muscle use. GASTROINTESTINAL: Abdomen soft, non-tender, nondistended. MUSCULOSKELETAL: No cyanosis, or edema. BACK: Nontender without obvious deformity. No CVA tenderness. Hospital Course Mrs. Spangler is a 76 year old female. She was admitted with acute back pain inhibiting ambulation. She has a history of L1-S1 spinal fusion. Additionally she has several chronic compression fractures at her thoracic spine. No new fractures were seen on imaging, but she may have exacerbated/stressed an existing fracture as her pain had been localized at known fracture sites. With pain treatments and PT she has improved and is starting to be able to bear weight and ambulate. She will benefit from further therapy at a SNF and is medically stable for a discharge to SNF today. Medically cleared for discharge today. Pt Condition on Discharge: Stable Discharge Disposition: Discharge to SNF Discharge Time: > 30 minutes Discharge Instructions DIET: Follow Instructions for: As Tolerated, No Restrictions Activities you can perform: Regular-No Restrictions Follow up Referrals: Neurosurgery - 2 Weeks PCP Follow-up - 2 Weeks New Medications: Oxycodone-Acetaminophen (Oxycodone-Acetaminophen) 5-325 mg Tab 1 TAB PO Q4H PRN PAIN GREATER THAN 5 #30 TAB Sennosides-Docusate Sodium (Senna Plus 8.6-50 mg) 1 Tab Tab 1 TAB PO BID #60 TAB Continued Medications: Atenolol (Atenolol) 25 Mg Tab 25 MG PO DAILY Blood Pressure Management TAB Clopidogrel (Clopidogrel) 75 Mg Tab 75 MG PO DAILY Blood Clot Prevention Ref 0 TAB Fluoxetine (Fluoxetine) 20 Mg Capsule 20 MG PO DAILY Ref 0 CAP Levothyroxine (Levothyroxine) 25 Mcg Tab Unknown Dose PO DAILY 1.5 HOURS AFTER DINNER Thyroid Ref 0 TAB Montelukast (Montelukast) 10 Mg Tab 10 MG PO HS Ref 0 TAB Pantoprazole (Protonix) 40 Mg Tab 40 MG PO DIRECTED ONLY AFTER OMEPRAZOLE IS GONE Reflux Ref 0 TAB Pramipexole (Pramipexole) 0.125 Mg Tab 0.125 MG PO HS Parkinson Disease Mgmt Ref 0 TAB Pravastatin (Pravastatin) 20 Mg Tab 20 MG PO DAILY Cholesterol Management Ref 0 TAB Pregabalin (Lyrica) 150 Mg Cap 150 MG PO BID Ref 0 CAP Sodium Bicarbonate (Sodium Bicarbonate) 325 Mg Tab Unknown Dose PO DAILY Ref 0 TAB Discontinued Medications: Nystatin Topical (Nystatin Topical) 100,000 unit/gm Cream 1 APPLIC TOPICAL TID Infection Ref 0 GM Omeprazole (Omeprazole) 20 Mg Tab 20 MG PO DAILY Ref 0 TAB Tramadol (Tramadol) 50 Mg Tab 100 MG PO BID PRN PAIN Ref 0 TAB Trazodone (Trazodone) 50 Mg Tab 100 MG PO HS Control Depression Ref 0 TAB Dann Tyler MD Nov 22, 2016 10:02
[2016-11-22 11:40] VITALS: BP 108/59; PULSE 63; RESP 16; TEMP 96; O2SAT 93
== END 2016-11-22 13:16 | DRG 552 ==
LOC: NEPC 13:14 → NEDA 15:30 → N06B 17:11
PROVIDERS: ADMIT Hospitalist; ATTEND Hospitalist
DX: M54.5 Low back pain (principal); G20 Parkinson's disease; F03.90 Unspecified dementia, unspecified severity, without behavioral disturbance, psychotic disturbance, mood disturbance, and anxiety; M51.37 Other intervertebral disc degeneration, lumbosacral region; N18.3 Chronic kidney disease, stage 3 (moderate); E78.5 Hyperlipidemia, unspecified; Z79.02 Long term (current) use of antithrombotics/antiplatelets; Z86.73 Personal history of transient ischemic attack (TIA), and cerebral infarction without residual deficits; Z88.0 Allergy status to penicillin; Z91.81 History of falling; M19.90 Unspecified osteoarthritis, unspecified site; R26.81 Unsteadiness on feet; F32.9 Major depressive disorder, single episode, unspecified; E03.9 Hypothyroidism, unspecified; I12.9 Hypertensive chronic kidney disease with stage 1 through stage 4 chronic kidney disease, or unspecified chronic kidney disease; Z96.611 Presence of right artificial shoulder joint; Z96.612 Presence of left artificial shoulder joint; Z87.891 Personal history of nicotine dependence; D64.9 Anemia, unspecified; F41.9 Anxiety disorder, unspecified; M48.55XD Collapsed vertebra, not elsewhere classified, thoracolumbar region, subsequent encounter for fracture with routine healing; M81.0 Age-related osteoporosis without current pathological fracture; M20.10 Hallux valgus (acquired), unspecified foot; M21.619 Bunion of unspecified foot; G89.29 Other chronic pain; K21.9 Gastro-esophageal reflux disease without esophagitis; M41.9 Scoliosis, unspecified; Z87.11 Personal history of peptic ulcer disease
CPT/HCPCS: 72110; 76937; 80048; 80053; 81001; 85025; 85027; 96374; J1170; J1644; J7040